=== PATIENT | male | born 1960 | race Two or more races ===

== ENCOUNTER 2022-09-29 11:33 | Day surgery (SDC) | payer MEDICARE, MEDICAID ==
[2022-09-29] VITALS (7 sets, daily range): BP systolic 109–134; BP diastolic 66–86
[~2022-09-29] VITALS: Ht 175.3 cm; Wt 72.7 kg
[2022-09-29] MEDS ORDERED: vancomycin 1,500 MG in NS 300ml IV soln IV ONE (12:14)
[2022-09-29] MEDS ORDERED: normal saline 1000ml 1,000 ML IV SCH (12:14)
[2022-09-29] MEDS ORDERED: ceFAZolin inj. 2,000 MG in dextrose 5%-water 100 ML IV ONE (12:14)
[2022-09-29] MEDS ORDERED: LISI5TAB22 PO (12:21)
[2022-09-29] MEDS ORDERED: METF-437 PO (12:21)
[2022-09-29] MEDS ORDERED: CARV12.549 PO (12:21)
[2022-09-29] MEDS ORDERED: ATOR-2 PO (12:21)
[2022-09-29] MEDS ORDERED: LEVO75TA PO (12:21)
[2022-09-29] MEDS ORDERED: CLOP75TA33 PO (12:21)
[2022-09-29] MEDS ORDERED: INDO50CA96 PO (12:21)
[2022-09-29 12:31] LABS: BASOPHILS % (AUTO) 0.8 % (0-1); EOSINOPHILS # (AUTO) 0.2 X10'3 (0-0.9); EOSINOPHILS % (AUTO) 3.8 % (0-6); HEMATOCRIT 34.3 % (42.0-52.0); HEMOGLOBIN 11.3 g/dl (14.0-17.9); LYMPHOCYTES # (AUTO) 1.5 X10'3 (1.1-4.8); MEAN CORPUSCULAR HEMOGLOBIN 30.2 PG (27.0-31.0); MEAN CORPUSCULAR HGB CONC 33.1 g/dL (33.0-36.5); MEAN CORPUSCULAR VOLUME 91.3 FL (78-98); MEAN PLATELET VOLUME 8.7 FL (7.4-10.4); MONOCYTES # (AUTO) 0.5 X10'3 (0-0.9); MONOCYTES % (AUTO) 8.7 % (2-12); NEUTROPHILS # (AUTO) 3.8 X10'3 (1.8-7.7); NEUTROPHILS % (AUTO) 62.7 % (42-75); PLATELET COUNT 237 X10'3 (140-440); RED BLOOD COUNT 3.76 X10'6 (4.70-6.10); RED CELL DISTRIBUTION WIDTH 14.5 % (11.5-14.5); WHITE BLOOD COUNT 6.1 X10'3 (4.5-11.0)
[2022-09-29 12:37] LABS: ALBUMIN 3.5 G/DL (3.4-5.0); ANION GAP 8 (8-16); BLOOD UREA NITROGEN 22 MG/DL (7-18); BUN/CREATININE RATIO 13.8 (5.4-32.0); CALCIUM 8.3 MG/DL (8.5-10.1); CHLORIDE 106 MMOL/L (99-107); GLUCOSE 108 MG/DL (70-104); MAGNESIUM 1.6 MG/DL (1.5-2.4); POTASSIUM 4.4 MMOL/L (3.5-5.1); SODIUM 141 MMOL/L (135-145); TOTAL CARBON DIOXIDE 26.7 MMOL/L (24-32); eGFR 44 ML/MIN
[2022-09-29] MEDS ORDERED: LIDOCAINE 1%/EPI 1:100,000 inj. 10 ML multi-dose vial ONE ×2 (14:04→14:10)
[2022-09-29] MEDS ORDERED: vancomycin 1,000mg inj ONE (14:05)
[2022-09-29] MEDS ORDERED: midazolam 1 mg/ML 2ml injection ONE ×4 (14:05→15:11)
[2022-09-29] MEDS ORDERED: fentaNYL/PF 50MCG/1 ML 2ML syringe ONE (14:05)
== END 2022-09-29 17:44 | disposition home or self-care (01) ==
LOC: SSTAY O 11:33
PROVIDERS: ATTEND Internal Medicine Cardiovascular Disease
DX: Z45.02 Encounter for adjustment and management of automatic implantable cardiac defibrillator (principal); I25.10 Atherosclerotic heart disease of native coronary artery without angina pectoris; I25.5 Ischemic cardiomyopathy; E78.5 Hyperlipidemia, unspecified; E11.22 Type 2 diabetes mellitus with diabetic chronic kidney disease; I13.0 Hypertensive heart and chronic kidney disease with heart failure and stage 1 through stage 4 chronic kidney disease, or unspecified chronic kidney disease; N18.9 Chronic kidney disease, unspecified; I50.9 Heart failure, unspecified; E66.9 Obesity, unspecified; Z68.23 Body mass index [BMI] 23.0-23.9, adult; Z95.2 Presence of prosthetic heart valve; M10.9 Gout, unspecified; F41.9 Anxiety disorder, unspecified; F32.9 Major depressive disorder, single episode, unspecified; K21.9 Gastro-esophageal reflux disease without esophagitis; D64.9 Anemia, unspecified; Z98.890 Other specified postprocedural states; Z88.8 Allergy status to other drugs, medicaments and biological substances; Z79.899 Other long term (current) drug therapy; Z79.84 Long term (current) use of oral hypoglycemic drugs
CPT/HCPCS: 33264; 36415; 80048; 83735; 85025; 85610; 93005; 99152; 99153; C1882; J0690; J2250; J3010; J3370; J3490; J7030; J7040; J7060; A4620; A6258